=== PATIENT | male | born 1940 | race African-American/Black ===

== ENCOUNTER 2022-09-21 07:10 | Inpatient (IN) | payer OTHER ==
[2022-09-21] VITALS (7 sets, daily range): BP systolic 169–187; BP diastolic 70–98
[~2022-09-21] VITALS: Ht 182.9 cm; Wt 68.0 kg
[2022-09-21 08:01] LABS: BG BASE EXCESS 3.5 mmol/L (-2.0-2.0); BG CARBOXYHEMOGLOBIN 1.7 % (0.5-1.5); BG DEOXYHEMOGLOBIN 0.5 % (0.0-5.0); BG FRACTION INSPIRED OXYGEN 100; BG HCO3 ACT 27.7 mmol/L (22.0-26.0); BG METHEMOGLOBIN 0.2 % (0.0-1.5); BG OXYGEN SATURATION 99.5 % (92.0-98.5); BG OXYHEMOGLOBIN 97.6 % (94.0-97.0); BG PCO2 40.3 mmHg (35.0-45.0); BG PH 7.455 (7.350-7.450); BG PO2 156.1 mmHg (75.0-100.0); BG SAMPLE SITE RIGHT RADIAL; BG TOTAL HEMOGLOBIN 11.6 g/dL (12.0-18.0); BG VENT MODE MASK - NRB
[2022-09-21 08:21] LABS: BASOPHILS % 0.7 % (0.0-2.0); EOSINOPHILS % 0.3 % (0.0-5.0); HEMATOCRIT. 34.5 % (42.0-52.0); HEMOGLOBIN. 11.6 g/dL (14.0-18.0); LYMPHOCYTES % 7.1 % (20.0-50.0); MEAN CORPUSCULAR HEMOGLOBIN 31.9 pg (28.0-32.0); MEAN CORPUSCULAR VOLUME 94.8 fL (80.0-94.0); MEAN PLATELET VOLUME 7.5 fl (7.4-10.4); MONOCYTES % 13.3 % (2.0-8.0); NEUTROPHILS % 78.6 % (40.0-76.0); PLATELET 251 x1000/uL (130-400); RED BLOOD CELL COUNT 3.64 mill/uL (4.7-6.1); RED CELL DISTRIBUTION WIDTH 16.3 % (11.6-14.6)
[2022-09-21 08:38] LABS: CHLORIDE 96 mEq/L (98-107)
[2022-09-21 08:48] LABS: ETHANOL BLOOD < 10 mg/dL
[2022-09-21] MEDS ORDERED: IOHEXOL-350 100 ML BOTTLE ONE (09:20)
[2022-09-21] MEDS ORDERED: CEFTRIAXONE 1 G PREMIX 50 ML IV ONE (09:30)
[2022-09-21] MEDS ORDERED: AZITHROMYCIN 500MG/250ML 250 ML IV ONE (09:30)
[2022-09-21 10:22] LABS: CLARITY URINE CLEAR (CLEAR); COLOR URINE RED (YELLOW); KETONES URINE TRACE (NEGATIVE); LEUKOCYTE ESTERASE URINE TRACE (NEGATIVE); NITRITE URINE NEGATIVE (NEGATIVE); OCCULT BLOOD URINE 3+ (NEGATIVE); PH URINE 8.5 (4.5-8.0); PROTEIN URINE 3+ (NEGATIVE); UROBILINOGEN URINE 0.2 E.U./dL (0.2-1.0)
[2022-09-21 10:22] LABS: INR 1.1; PROTHROMBIN TIME 11.4 sec (9.6-11.0)
[2022-09-21 10:43] LABS: *AMPHETAMINES SCREEN URINE NEGATIVE (NEGATIVE); *BARBITURATES SCREEN URINE NEGATIVE (NEGATIVE); *BENZODIAZEPINES SCREEN URINE NEGATIVE (NEGATIVE); *COCAINE SCREEN URINE NEGATIVE (NEGATIVE); CANNABINOID URINE SCREEN NEGATIVE (NEGATIVE); METHADONE URINE SCREEN NEGATIVE (NEGATIVE); OPIATES URINE SCREEN NEGATIVE (NEGATIVE); PHENCYCLIDINE URINE SCREEN NEGATIVE (NEGATIVE)
[2022-09-21] MEDS ORDERED: CLONIDINE 0.1MG TABLET PO PRN (12:15)
[2022-09-21] MEDS: IPRATROPIUM/ALBUTEROL 0.5-3(2.5)MG/3ML NEB HHN SCH ×2 (12:15→18:15)
[2022-09-21] MEDS ORDERED: ONDANSETRON HCL 4MG/2ML INJ IV PRN (12:15)
[2022-09-21] MEDS ORDERED: ENOXAPARIN 40MG/0.4ML SYR SUBCUT SCH (12:15)
[2022-09-21] MEDS ORDERED: HYDROCODONE/ACETAMINOPHEN 5/325MG TABLET PO PRN (12:15)
[2022-09-21] MEDS ORDERED: GUAIFENESIN 200MG/10ML SUGAR FREE UDC PO PRN (12:15)
[2022-09-21] MEDS ORDERED: ACETAMINOPHEN 325MG TABLET PO PRN ×2 (12:15)
[2022-09-21] MEDS ORDERED: NALOXONE HCL 0.4MG/ML VIAL IV PRN (12:45)
[2022-09-21] MEDS: ASPIRIN 81MG TABLET PO SCH (13:00)
[2022-09-21] MEDS: CLONIDINE 0.1MG TABLET PO SCH (16:00)
[2022-09-21 16:19] LABS: CREATINE KINASE 43 IU/L (39-308)
[2022-09-21 16:22] LABS: HEPATITIS B SURFACE ANTIGEN NEGATIVE
[2022-09-21 18:23] LABS: FOLIC ACID (FOLATE) SERUM 13.8 ng/mL (>5.38)
[2022-09-21] MEDS ORDERED: FAMOTIDINE 20MG TABLET PO SCH (21:00)
[2022-09-21] MEDS: HYDRALAZINE 20MG/ML VIAL IV PRN (21:00)
[2022-09-21] MEDS: AMLODIPINE 5MG TABLET PO SCH (21:00)
[2022-09-21] MEDS: ATORVASTATIN CALCIUM 40MG TABLET PO SCH (21:00)
[2022-09-22] VITALS (15 sets, daily range): BP systolic 145–189; BP diastolic 62–90
[2022-09-22] MEDS: IPRATROPIUM/ALBUTEROL 0.5-3(2.5)MG/3ML NEB HHN SCH ×4 (00:15→18:15)
[2022-09-22 00:31] LABS: CREATINE KINASE 44 IU/L (39-308)
[2022-09-22 07:39] LABS: PHOSPHORUS 2.5 mg/dL (2.5-4.9)
[2022-09-22] MEDS: CLONIDINE 0.1MG TABLET PO SCH ×4 (08:00→23:56)
[2022-09-22 08:16] LABS: HEMATOCRIT. 33.5 % (42.0-52.0); HEMOGLOBIN. 11.6 g/dL (14.0-18.0); MEAN CORPUSCULAR HEMOGLOBIN 32.4 pg (28.0-32.0); MEAN PLATELET VOLUME 7.8 fl (7.4-10.4); PLATELET 266 x1000/uL (130-400); RED BLOOD CELL COUNT 3.57 mill/uL (4.7-6.1); RED CELL DISTRIBUTION WIDTH 16.3 % (11.6-14.6)
[2022-09-22] MEDS ORDERED: AMLODIPINE 5MG TABLET PO SCH (09:00)
[2022-09-22] MEDS: ASPIRIN 81MG TABLET PO SCH (09:00)
[2022-09-22] MEDS: AMLODIPINE 5MG TABLET PO SCH ×2 (09:00→20:00)
[2022-09-22] MEDS: CEFTRIAXONE 1,000 MG in DEXTROSE 5% WATER 50 ML IV SCH (11:00)
[2022-09-22] MEDS ORDERED: HEPARIN 5000 UNITS/ML VIAL SUBCUT SCH (11:30)
[2022-09-22] MEDS ORDERED: AZITHROMYCIN 500 MG in DEXT 5% WATER 250 ML IV SCH (12:00)
[2022-09-22] MEDS ORDERED: CEFTRIAXONE 1 G PREMIX 50 ML IV SCH (12:15)
[2022-09-22] MEDS: DEXT 5%/0.9% NACL 1,000 ML IV SCH (15:22)
[2022-09-22] MEDS: AZITHROMYCIN 500 MG in DEXT 5% WATER 250 ML IV SCH (15:24)
[2022-09-22] MEDS: ENOXAPARIN 30MG/0.3ML SYR SUBCUT SCH (15:24)
[2022-09-22] MEDS: PANTOPRAZOLE SODIUM 40 MG/VIAL IV SCH (15:24)
[2022-09-22] MEDS: ATORVASTATIN CALCIUM 40MG TABLET PO SCH (20:00)
[2022-09-22] MEDS: HYDRALAZINE 20MG/ML VIAL IV PRN (20:47)
[2022-09-23] VITALS: BP 132/78
[2022-09-23] MEDS: IPRATROPIUM/ALBUTEROL 0.5-3(2.5)MG/3ML NEB HHN SCH ×3 (00:15→12:15)
[2022-09-23 04:00] VITALS: BP 165/86
[2022-09-23] MEDS: HYDRALAZINE 20MG/ML VIAL IV PRN ×2 (04:27→23:22)
[2022-09-23 08:40] VITALS: BP 166/65
[2022-09-23] MEDS: AMLODIPINE 5MG TABLET PO SCH ×2 (08:45→20:47)
[2022-09-23] MEDS: ASPIRIN 81MG TABLET NG SCH (08:45)
[2022-09-23] MEDS: CLONIDINE 0.1MG TABLET PO SCH ×2 (08:46→15:19)
[2022-09-23] MEDS: PANTOPRAZOLE SODIUM 40 MG/VIAL IV SCH (08:46)
[2022-09-23] MEDS ORDERED: ENOXAPARIN 40MG/0.4ML SYR SUBCUT SCH (09:00)
[2022-09-23] MEDS: HYDRALAZINE HCL 50MG TABLET PO SCH ×3 (11:09→20:47)
[2022-09-23 12:12] VITALS: BP 147/71
[2022-09-23] MEDS: CEFTRIAXONE 1,000 MG in DEXTROSE 5% WATER 50 ML IV SCH (12:51)
[2022-09-23] MEDS: DEXT 5%/0.9% NACL 1,000 ML IV SCH (12:52)
[2022-09-23 14:46] LABS: PLATELET ESTIMATE NORMAL
[2022-09-23] MEDS: AZITHROMYCIN 500 MG in DEXT 5% WATER 250 ML IV SCH (15:16)
[2022-09-23] MEDS: ENOXAPARIN 30MG/0.3ML SYR SUBCUT SCH (15:17)
[2022-09-23 16:00] VITALS: BP 154/65
[2022-09-23 16:57] LABS: BASOPHILS % 0.9 % (0.0-2.0); EOSINOPHILS % 7.9 % (0.0-5.0); HEMATOCRIT. 33.5 % (42.0-52.0); HEMOGLOBIN. 11.1 g/dL (14.0-18.0); LYMPHOCYTES % 13.3 % (20.0-50.0); MEAN CORPUSCULAR HEMOGLOBIN 31.5 pg (28.0-32.0); MEAN CORPUSCULAR VOLUME 94.7 fL (80.0-94.0); MEAN PLATELET VOLUME 7.5 fl (7.4-10.4); MONOCYTES % 14.9 % (2.0-8.0); PLATELET 285 x1000/uL (130-400); RED BLOOD CELL COUNT 3.54 mill/uL (4.7-6.1); RED CELL DISTRIBUTION WIDTH 16.4 % (11.6-14.6)
[2022-09-23 17:17] LABS: PHOSPHORUS 1.9 mg/dL (2.5-4.9)
[2022-09-23 20:00] VITALS: BP 168/79
[2022-09-23] MEDS: ATORVASTATIN CALCIUM 40MG TABLET PO SCH (20:46)
[2022-09-24] VITALS (12 sets, daily range): BP systolic 127–178; BP diastolic 55–108
[2022-09-24] MEDS: CLONIDINE 0.1MG TABLET PO SCH ×3 (00:44→14:16)
[2022-09-24] MEDS: IPRATROPIUM BROMIDE (0.02%) 0.5MG/2.5ML NEB HHN SCH ×4 (01:24→20:39)
[2022-09-24] MEDS: ALBUTEROL (0.083%) 2.5MG/3ML NEB HHN SCH ×4 (01:24→20:39)
[2022-09-24] MEDS: HYDRALAZINE HCL 50MG TABLET PO SCH ×3 (05:49→22:00)
[2022-09-24 06:44] LABS: BASOPHILS % 1.2 % (0.0-2.0); EOSINOPHILS % 6.5 % (0.0-5.0); MEAN CORPUSCULAR HEMOGLOBIN 31.8 pg (28.0-32.0); MEAN CORPUSCULAR VOLUME 95.1 fL (80.0-94.0); MEAN PLATELET VOLUME 7.7 fl (7.4-10.4); NEUTROPHILS % 72.3 % (40.0-76.0); PLATELET 294 x1000/uL (130-400); RED BLOOD CELL COUNT 3.79 mill/uL (4.7-6.1); RED CELL DISTRIBUTION WIDTH 16.2 % (11.6-14.6)
[2022-09-24] MEDS: ASPIRIN 81MG TABLET NG SCH (08:54)
[2022-09-24] MEDS: AMLODIPINE 5MG TABLET PO SCH ×3 (08:54→21:19)
[2022-09-24] MEDS: PANTOPRAZOLE SODIUM 40 MG/VIAL IV SCH (08:54)
[2022-09-24] MEDS: DEXT 5%/0.9% NACL 1,000 ML IV SCH (12:08)
[2022-09-24] MEDS: CEFTRIAXONE 1,000 MG in DEXTROSE 5% WATER 50 ML IV SCH (12:08)
[2022-09-24] MEDS: AZITHROMYCIN 500 MG in DEXT 5% WATER 250 ML IV SCH (14:12)
[2022-09-24] MEDS: ENOXAPARIN 30MG/0.3ML SYR SUBCUT SCH (14:15)
[2022-09-24] MEDS: ATORVASTATIN CALCIUM 40MG TABLET PO SCH ×2 (21:00→21:19)
[2022-09-24] MEDS: HYDRALAZINE 20MG/ML VIAL IV PRN (21:20)
[2022-09-25] VITALS (9 sets, daily range): BP systolic 107–182; BP diastolic 66–91
[2022-09-25] MEDS: CLONIDINE 0.1MG TABLET PO SCH ×4 (01:58→23:40)
[2022-09-25] MEDS: IPRATROPIUM BROMIDE (0.02%) 0.5MG/2.5ML NEB HHN SCH ×4 (02:34→21:17)
[2022-09-25] MEDS: ALBUTEROL (0.083%) 2.5MG/3ML NEB HHN SCH ×4 (02:34→21:17)
[2022-09-25] MEDS: HYDRALAZINE 20MG/ML VIAL IV PRN (04:41)
[2022-09-25] MEDS: HYDRALAZINE HCL 50MG TABLET PO SCH ×3 (07:21→20:30)
[2022-09-25] MEDS: OMEPRAZOLE 20MG CAPSULE EXTENDED RELEASE PO SCH (07:22)
[2022-09-25] MEDS: AMLODIPINE 5MG TABLET PO SCH ×2 (09:00→20:29)
[2022-09-25] MEDS: ASPIRIN 81MG TABLET NG SCH (09:48)
[2022-09-25] MEDS: CEFTRIAXONE 1,000 MG in DEXTROSE 5% WATER 50 ML IV SCH (10:34)
[2022-09-25] MEDS ORDERED: AZITHROMYCIN 500 MG TABLET PO SCH (14:00)
[2022-09-25] MEDS: ENOXAPARIN 30MG/0.3ML SYR SUBCUT SCH (14:47)
[2022-09-25 16:16] LABS: EOSINOPHILS % 4.8 % (0.0-5.0); LYMPHOCYTES % 14.9 % (20.0-50.0); MEAN CORPUSCULAR HEMOGLOBIN 31.5 pg (28.0-32.0); MEAN CORPUSCULAR VOLUME 94.4 fL (80.0-94.0); MEAN PLATELET VOLUME 7.6 fl (7.4-10.4); MONOCYTES % 12.8 % (2.0-8.0); NEUTROPHILS % 66.5 % (40.0-76.0); PLATELET 346 x1000/uL (130-400); RED BLOOD CELL COUNT 4.13 mill/uL (4.7-6.1); RED CELL DISTRIBUTION WIDTH 16.8 % (11.6-14.6)
[2022-09-25] MEDS: ATORVASTATIN CALCIUM 40MG TABLET PO SCH (20:31)
[2022-09-26] MEDS: ALBUTEROL (0.083%) 2.5MG/3ML NEB HHN SCH ×4 (02:42→21:24)
[2022-09-26] MEDS: IPRATROPIUM BROMIDE (0.02%) 0.5MG/2.5ML NEB HHN SCH ×4 (02:42→21:24)
[2022-09-26 04:00] VITALS: BP 151/73
[2022-09-26] MEDS: OMEPRAZOLE 20MG CAPSULE EXTENDED RELEASE PO SCH (05:42)
[2022-09-26] MEDS: HYDRALAZINE HCL 50MG TABLET PO SCH ×3 (05:42→21:18)
[2022-09-26 06:34] LABS: BASOPHILS % 1.1 % (0.0-2.0); EOSINOPHILS % 6.7 % (0.0-5.0); HEMATOCRIT. 36.3 % (42.0-52.0); HEMOGLOBIN. 12.2 g/dL (14.0-18.0); LYMPHOCYTES % 14.1 % (20.0-50.0); MEAN CORPUSCULAR HEMOGLOBIN 31.7 pg (28.0-32.0); MEAN CORPUSCULAR VOLUME 93.9 fL (80.0-94.0); MEAN PLATELET VOLUME 7.5 fl (7.4-10.4); MONOCYTES % 11.8 % (2.0-8.0); NEUTROPHILS % 66.3 % (40.0-76.0); PLATELET 343 x1000/uL (130-400); RED BLOOD CELL COUNT 3.87 mill/uL (4.7-6.1)
[2022-09-26 07:53] VITALS: BP 148/85
[2022-09-26] MEDS: AMLODIPINE 5MG TABLET PO SCH ×2 (08:45→21:18)
[2022-09-26] MEDS: CLONIDINE 0.1MG TABLET PO SCH ×3 (08:45→15:20)
[2022-09-26] MEDS: ASPIRIN 81MG TABLET NG SCH (08:45)
[2022-09-26] MEDS: CEFTRIAXONE 1,000 MG in DEXTROSE 5% WATER 50 ML IV SCH (10:41)
[2022-09-26 11:43] VITALS: BP 107/71
[2022-09-26] MEDS ORDERED: CLOPIDOGREL 75MG TABLET PO SCH (13:00)
[2022-09-26] MEDS: ENOXAPARIN 30MG/0.3ML SYR SUBCUT SCH (15:16)
[2022-09-26 16:00] VITALS: BP 142/65
[2022-09-26] MEDS ORDERED: LIP40 PO (16:31)
[2022-09-26] MEDS ORDERED: ASPI-1160 NG (16:31)
[2022-09-26] MEDS ORDERED: CLOP75TA15 PO (16:31)
[2022-09-26 19:54] VITALS: BP 180/80
[2022-09-26] MEDS: ATORVASTATIN CALCIUM 40MG TABLET PO SCH (21:17)
[2022-09-26 23:56] VITALS: BP 160/68
[2022-09-27] VITALS (16 sets, daily range): BP systolic 128–170; BP diastolic 46–89
[2022-09-27] MEDS: CLONIDINE 0.1MG TABLET PO SCH ×3 (00:14→16:00)
[2022-09-27] MEDS: IPRATROPIUM BROMIDE (0.02%) 0.5MG/2.5ML NEB HHN SCH ×2 (00:45→09:11)
[2022-09-27] MEDS: ALBUTEROL (0.083%) 2.5MG/3ML NEB HHN SCH ×2 (00:45→09:11)
[2022-09-27] MEDS: HYDRALAZINE HCL 50MG TABLET PO SCH ×2 (05:30→14:00)
[2022-09-27 06:33] LABS: BASOPHILS % 1.2 % (0.0-2.0); EOSINOPHILS % 6.6 % (0.0-5.0); HEMATOCRIT. 35.9 % (42.0-52.0); HEMOGLOBIN. 11.9 g/dL (14.0-18.0); LYMPHOCYTES % 17.1 % (20.0-50.0); MEAN CORPUSCULAR HEMOGLOBIN 31.2 pg (28.0-32.0); MEAN CORPUSCULAR VOLUME 94.2 fL (80.0-94.0); MEAN PLATELET VOLUME 7.8 fl (7.4-10.4); MONOCYTES % 9.3 % (2.0-8.0); NEUTROPHILS % 65.8 % (40.0-76.0); PLATELET 342 x1000/uL (130-400); RED BLOOD CELL COUNT 3.81 mill/uL (4.7-6.1); RED CELL DISTRIBUTION WIDTH 16.4 % (11.6-14.6)
[2022-09-27 06:52] LABS: PHOSPHORUS 3.6 mg/dL (2.5-4.9)
[2022-09-27] MEDS: AMLODIPINE 5MG TABLET PO SCH (09:00)
[2022-09-27] MEDS ORDERED: CLOPIDOGREL 75MG TABLET PO SCH (09:00)
[2022-09-27] MEDS: OMEPRAZOLE 20MG CAPSULE EXTENDED RELEASE PO SCH (09:09)
[2022-09-27] MEDS: ASPIRIN 81MG TABLET NG SCH (09:10)
[2022-09-27] MEDS: ENOXAPARIN 30MG/0.3ML SYR SUBCUT SCH (15:00)
== END 2022-09-27 18:14 | DRG 64 ==
LOC: ER 07:10 → 7WST 11:14 → EDBEDREQSVC 11:16 → EDBEDREQTM 11:16 → EDBEDREQ 11:16 → ENRESERV 15:55
PROVIDERS: ADMIT Internal Medicine; ATTEND Internal Medicine
PROC: 5A1D70Z Performance of Urinary Filtration, Intermittent, Less than 6 Hours Per Day (ICD-10-PCS; principal; 2022-09-21)
PROC: 5A1D70Z Performance of Urinary Filtration, Intermittent, Less than 6 Hours Per Day (ICD-10-PCS; 2022-09-22)
PROC: 5A1D70Z Performance of Urinary Filtration, Intermittent, Less than 6 Hours Per Day (ICD-10-PCS; 2022-09-24)
PROC: 5A1D70Z Performance of Urinary Filtration, Intermittent, Less than 6 Hours Per Day (ICD-10-PCS; 2022-09-27)
DX: I63.232 Cerebral infarction due to unspecified occlusion or stenosis of left carotid arteries (principal); G92.8 Other toxic encephalopathy; I21.A1 Myocardial infarction type 2; J18.9 Pneumonia, unspecified organism; J96.01 Acute respiratory failure with hypoxia; N18.6 End stage renal disease; E46 Unspecified protein-calorie malnutrition; I16.1 Hypertensive emergency; I13.11 Hypertensive heart and chronic kidney disease without heart failure, with stage 5 chronic kidney disease, or end stage renal disease; I31.39 Other pericardial effusion (noninflammatory); D63.8 Anemia in other chronic diseases classified elsewhere; E78.5 Hyperlipidemia, unspecified; E88.09 Other disorders of plasma-protein metabolism, not elsewhere classified; N40.0 Benign prostatic hyperplasia without lower urinary tract symptoms; F03.90 Unspecified dementia, unspecified severity, without behavioral disturbance, psychotic disturbance, mood disturbance, and anxiety; K21.9 Gastro-esophageal reflux disease without esophagitis; I27.21 Secondary pulmonary arterial hypertension; I44.7 Left bundle-branch block, unspecified; R29.721 NIHSS score 21; I34.0 Nonrheumatic mitral (valve) insufficiency; I49.1 Atrial premature depolarization; N05.8 Unspecified nephritic syndrome with other morphologic changes; N28.1 Cyst of kidney, acquired; Z79.899 Other long term (current) drug therapy; Z79.82 Long term (current) use of aspirin; Z79.02 Long term (current) use of antithrombotics/antiplatelets; Z99.2 Dependence on renal dialysis; Z82.49 Family history of ischemic heart disease and other diseases of the circulatory system; Z86.73 Personal history of transient ischemic attack (TIA), and cerebral infarction without residual deficits; Z20.822 Contact with and (suspected) exposure to COVID-19
CPT/HCPCS: 36415; 36600; 70496; 70498; 70551; 71045; 76770; 80048; 80053; 80061; 80305; 80320; 81003; 82375; 82550; 82607; 82728; 82746; 82805; 82962; 83036; 83540; 83550; 83605; 83735; 83880; 84100; 84145; 84153; 84443; 84484; 85025; 85379; 86592; 86705; 86709; 86803; 87340; 87426; 87804; 90935; 92610; 93005; 93306; 93970; 94640; 97110; 97162; 97166; 97530; 97535; 99285; C1893; C9113; C9803; J0360; J0456; J0696; J1650; J7042; J7060; Q9967; G0103; G0480